=== PATIENT | male | born 1960 | race Caucasian/White ===

== ENCOUNTER 2020-09-12 16:26 | Emergency (ER) | payer BC, MEDICARE ==
[~2020-09-12] VITALS: Ht 177.8 cm; Wt 97.7 kg
[~2020-09-12 16:26] MED LIST: INSU100V8 SQ; novalog
--- NOTE | 2020-09-12 16:53 | PHYS DOC ---
Past History Past Medical History: Diabetes (RAKEL MEZA APRN) Past Surgical History: Other (RAKEL MEZA APRN) Smoking: Non-smoker Alcohol Use: None Drug Use: None (RAKEL MEZA APRN) General Adult EDM: Chief Complaint: CHEST PAIN HPI: HPI: Patient is a 60-year-old male who presents with chest tightness. Patient states he was sitting at his doctor's office in the waiting room when the tightness began. Patient also reports nausea but denies vomiting. Patient denies any shortness of breath, dizziness, or radiation of pain. Patient was at his PCP for a wound check to lateral left lower leg. Patient states he did not notice the wound until Saturday. Patient denies taking anything prior to arrival. Patient has a history of hypertension, diabetes, peritoneal dialysis, CHF. (RAKEL MEZA APRN) Review of Systems: Review of Systems: Constitutional: Denies fever or chills Eyes: Denies change in visual acuity HENT: Denies nasal congestion or sore throat Respiratory: Reports chronic cough, denies shortness of breath Cardiovascular: Denies chest pain or edema GI: Denies abdominal pain, nausea, vomiting, bloody stools or diarrhea : Denies dysuria Musculoskeletal: Denies back pain or joint pain Integument: Denies rash Neurologic: Denies headache, focal weakness or sensory changes Endocrine: Denies polyuria or polydipsia Lymphatic: Denies swollen glands Psychiatric: Denies depression or anxiety (RAKEL MEZA APRN) Allergies: Allergies: Allergies Coded Allergies Type Severity Reaction Last Updated Verified levofloxacin Allergy Unknown 09/12/20 Yes (RAKEL MEZA APRN) Physical Exam: PE: Constitutional: Well developed, well nourished, no acute distress, non-toxic appearance. [] HENT: Normocephalic, atraumatic, bilateral external ears normal, oropharynx moist, no oral exudates, nose normal. [] Eyes: PERRLA, EOMI, conjunctiva normal, no discharge. [] Neck: Normal range of motion, no tenderness, supple, no stridor. [] Cardiovascular:Heart rate sinus tachycardia, no murmur [] Lungs & Thorax: Bilateral breath sounds clear to auscultation [] Abdomen: Bowel sounds normal, soft, no tenderness, no masses, no pulsatile masses. [] Skin: Warm, dry, no erythema, no rash. [] Back: No tenderness, no CVA tenderness. [] Extremities: No tenderness, no cyanosis, no clubbing, ROM intact, no edema. [] Neurologic: Alert and oriented X 3, normal motor function, normal sensory function, no focal deficits noted. [] Psychologic: Affect normal, judgement normal, mood normal. [] (RAKEL MEZA APRN) EKG: EKG: [] (RAKEL MEZA APRN) Radiology/Procedures: Radiology/Procedures: []Study: XR CHEST 1V Indication: Chest pain. Comparison: 12/09/2013 Findings: The cardiomediastinal silhouette is enlarged. Prominence of the central vasculature and increased lung markings though in part related to low lung vol umes with bronchovascular crowding. No confluent airspace infiltrate, large effusion or pneumothorax. Grossly intact osseous structures. Impression: Enlargement of the cardiomediastinal silhouette potentially with a component of central vascular congestion. No large effusion. No localized airspace opacity to suggest an organizing pneumonia. Electronically signed by: OUSMANE TARANGO MD (09/12/2020 5:22 PM) [id number] XR FOOT_LEFT 3 VIEWS, XR LT TIBIA + FIBULA, XR EXAM OF ANKLE_LEFT 3V Clinical Indication: Reason: wound / Comparison: None. Findings: Foot: No dorsal soft tissue swelling. No bone erosion is identified to suggest osteomyelitis. Mild degenerative arthropathy. No bone erosion is seen to suggest osteoarthritis. The mineralization appears normal. Tibia fibula: No acute fracture. There is subcutaneous edema. Arterial calcifications are seen . There is large patellar enthesophyte. Ankle: Ankle mortise is intact. No acute fracture. No soft tissue swelling. Tiny Achill es calcaneal enthesophyte. IMPRESSION: No acute bone abnormality. Electronically signed by: Bravo May MD (09/12/2020 5:36 PM) DONALDBRISSA XR FOOT_LEFT 3 VIEWS, XR LT TIBIA + FIBULA, XR EXAM OF ANKLE_LEFT 3V Clinical Indication: Reason: wound / Comparison: None. Findings: Foot: No dorsal soft tissue swelling. No bone erosion is identified to suggest osteomyelitis. Mild degenerative arthropathy. No bone erosion is seen to suggest osteoarthritis. The mineralization appears normal. Tibia fibula: No acute fracture. There is subcutaneous edema. Arterial calcifications are seen. There is large patellar enthesophyte. Ankle: Ankle mortise is intact. No acute fracture. No soft tissue swelling. Tiny Achilles calcaneal enthesophyte. IMPRESSION: No acute bone abnormality. Electronically signed by: Bravo May MD (09/12/2020 5:36 PM) [facility] XR FOOT_LEFT 3 VIEWS, XR LT TIBIA + FIBULA, XR EXAM OF ANKLE_LEFT 3V Clinical Indication: Reason: wound / Comparison: None. Findings: Foot: No dorsal soft tissue swelling. No bone erosion is identified to suggest osteomyelitis. Mild degenerative arthropathy. No bone erosion is seen to suggest osteoarthritis. The mineralization appears normal. Tibia fibula: No acute fracture. There is subcutaneous edema. Arterial calcifications are seen. There is large patellar enthesophyte. Ankle: Ankle mortise is intact. No acute fracture. No soft tissue swelling. Tiny Achilles calcaneal enthesophyte. IMPRESSION: No acute bone abnormality. Electronically signed by: Bravo May MD (09/12/2020 5:36 PM) [facility] (RAKEL MEZA APRN) Heart Score: HEART Score for Chest Pain: HEART Score for Chest Pain Response (Comments) Value History Highly Suspicious 2 ECG Normal 0 Age >45 - < 65 1 Risk Factors >3 Risk Factors or Hx CAD 2 Troponin >1-<3x Normal Limit 1 Total 6 Risk Factors: Risk Factors: DM, Current or recent (<one month) smoker, HTN, HLP, family history of CAD, obesity. Risk Scores: Score 0 - 3: 2.5% MACE over next 6 weeks - Discharge Home Score 4 - 6: 20.3% MACE over next 6 weeks - Admit for Clinical Observation Score 7 - 10: 72.7% MACE over next 6 weeks - Early Invasive Strategies (RAKEL MEZA APRN) Course & Med Decision Making: Course & Med Decision Making Pertinent Labs and Imaging studies reviewed. (See chart for details) []Patient is a 60-year-old male who presents with chest tightness. Patient states he was sitting at his doctor's office in the waiting room when the tightness began. Patient also reports nausea but denies vomiting. Patient denies any shortness of breath, dizziness, or radiation of pain. Patient was at his PCP for a wound check to lateral left lower leg. Patient states he did not notice the wound until Saturday. Patient denies taking anything prior to arrival. Patient has a history of hypertension, diabetes, peritoneal dialysis, CHF. EKG sinus tachycardia, with a right bundle branch block, heart rate 131. Troponin 0.109. D-dimer was elevated 0.55. CTA ordered to rule out PE. Patient gets peritoneal dialysis daily. Discussed with patient admitting to the hospital for chest pain. Heart score of 6. Patient has 2 wounds on the lateral left lower leg. Zosyn and Vanco given for infection. Ankle, foot, tib- fib x-ray negative for osteomyelitis. Patient to follow-up with wound care at [facility]. Patient is okay with the plan to admit to the hospital. [facility] Spoke with Dr. Hendricks who also agrees to admit patient at [facility]. Started heparin per Dr. Hendricks for NSTEMI protocol. Aspirin was also given to patient. (RAKEL MEZA APRN) Course & Med Decision Making Did not see or evaluate patient personally. Agree with INFORMATION SECURITY ENGINEER's plan and disposition per note. (AMADEO BRIGHT MD) Dragon Disclaimer: Dragon Disclaimer: This electronic medical record was generated, in whole or in part, using a voice recognition dictation system. (RAKEL MEZA APRN) Departure Departure: Impression: Primary Impression: Chest pain Qualified Codes: R07.89 - Other chest pain Disposition: 05 DC/TRF OTHER TYPE INSTITUTI Condition: STABLE Referrals: PCP,NO (PCP) RAKEL MEZA APRN Sep 12, 2020 16:53 AMADEO BRIGHT MD Sep 14, 2020 00:10
--- NOTE | 2020-09-12 17:01 | EKG ---
[address] [address] Test Date: 2020-09-12 Test Time: 16:49:56 Pat Name: JAYDON HSIEH Department: Room: Gender: M Dianetic Counselor: : 1960 Requested By: RAKEL MEZA Order Number: [id number] Reading MD: Measurements Intervals [place] Rate: 131 P: MI: QRS: -10 QRSD: 148 T: 17 QT: 342 QTc: 510 Interpretive Statements VENTRICULAR TACHYCARDIA ABNORMAL ECG RI6.02 No previous ECG available for comparison
[2020-09-12 17:05] LABS: BASO # 0.1 x10^3/uL (0.0-0.2); BASO % 1 % (0-3); EOS # 0.3 x10^3/uL (0.0-0.7); EOS % 3 % (0-3); HEMATOCRIT 39.4 % (39.0-53.0); HEMOGLOBIN 12.5 g/dL (13.0-17.5); LYMPH # 0.5 x10^3/uL (1.0-4.8); LYMPH % 6 % (24-48); MEAN CORPUSCULAR HEMOGLOBIN 29 pg (25-35); MEAN CORPUSCULAR HGB CONC 32 g/dL (31-37); MEAN CORPUSCULAR VOLUME 91 fL (79-100); MONO % 11 % (0-9); NEUT # 7.3 x10^3uL (1.8-7.7); NEUT % 79 % (31-73); PLATELET COUNT 266 x10^3/uL (140-400); RED BLOOD COUNT 4.35 x10^6/uL (4.30-5.70); WHITE BLOOD COUNT 9.3 x10^3/uL (4.0-11.0)
[2020-09-12] MEDS ORDERED: PIPERACILLIN/TAZOBACTAM 3.375 GM VIAL IV ONE (17:11)
[2020-09-12] MEDS ORDERED: IV NORMAL SALINE 50ML 50 ML ONE (17:11)
[2020-09-12] MEDS ORDERED: VANCOMYCIN 2 GM in IV NORMAL SALINE 500ML 500 ML IV ONE (17:15)
[2020-09-12] MEDS ORDERED: VANCOMYCIN 1 GM in IV NORMAL SALINE 250ML 250 ML IV ONE (17:15)
[2020-09-12] MEDS ORDERED: PIPERACILLIN/TAZOBACTAM 3.375 GM in IV NORMAL SALINE 50ML 50 ML IV ONE (17:15)
--- NOTE | 2020-09-12 17:24 | RAD ---
Study: XR CHEST 1V Indication: Chest pain. Comparison: 12/09/2013 Findings: The cardiomediastinal silhouette is enlarged. Prominence of the central vasculature and increased carl g markings though in part related to low lung volumes with bronchovascular crowding. No confluent airspace infiltrate, large effusion or pneumothorax. Grossly intact osseous structures. Impression: Enlargement of the cardiomediastinal silhouette potentially with a component of central vascular kaley estion. No large effusion. No localized airspace opacity to suggest an organizing pneumonia. Electronically signed by: OUSMANE TARANGO MD (09/12/2020 5:22 PM) [id number]
--- NOTE | 2020-09-12 17:38 | RAD ---
XR FOOT_LEFT 3 VIEWS, XR LT TIBIA + FIBULA, XR EXAM OF ANKLE_LEFT 3V Clinical Indication: Reason: wound / Comparison: None. Findings: Foot: No dorsal soft tissue swelling. No bone erosion is identified to suggest osteomyelitis. Mild degenera tive arthropathy. No bone erosion is seen to suggest osteoarthritis. The mineralization appears alexx l. Tibia fibula: No acute fracture. There is subcutaneous edema. Arterial calcifications are seen. There is large sommer llar enthesophyte. Ankle: Ankle mortise is intact. No acute fracture. No soft tissue swelling. Tiny Achilles calcaneal enthesop hyte. IMPRESSION: No acute bone abnormality. Electronically signed by: Bravo May MD (09/12/2020 5:36 PM) DONALDBRISSA
[2020-09-12] MEDS ORDERED: IV NORMAL SALINE 500ML 500 ML ONE (17:58)
[2020-09-12] MEDS ORDERED: VANCOMYCIN 1 GM VIAL. ONE ×2 (17:58)
[2020-09-12] MEDS ORDERED: IOHEXOL 350 MG/ML 100 ML VIAL. IV ONE (18:00)
[2020-09-12 18:15] LABS: ALBUMIN 2.6 g/dL (3.4-5.0); ALBUMIN/GLOBULIN RATIO 0.8 (1.0-1.7); ALK PHOS 83 U/L (46-116); ALT (SGPT) 25 U/L (16-63); AST (SGOT) 12 U/L (15-37); BLOOD UREA NITROGEN 91 mg/dL (8-26); BUN/CREATININE RATIO 8 (6-20); CALCIUM 6.8 mg/dL (8.5-10.1); CREATININE 10.9 mg/dL (0.7-1.3); GFR 4.8; GLUCOSE 163 mg/dL (70-99); SODIUM 140 mmol/L (136-145); TOTAL BILIRUBIN 0.4 mg/dL (0.2-1.0); TOTAL PROTEIN 5.8 g/dL (6.4-8.2)
[2020-09-12 18:16] LABS: ANION GAP 20 (6-14); CARBON DIOXIDE 21 mmol/L (21-32); CHLORIDE 99 mmol/L (98-107); POTASSIUM 3.9 mmol/L (3.5-5.1)
[2020-09-12] MEDS ORDERED: ASPIRIN CHEWABLE 81 MG TABLET. PO ONE (19:15)
--- NOTE | 2020-09-12 19:20 | RAD ---
Study: CT CHEST WITH CONTRAST - PULMONARY ANGIOGRAM History: Chest pain, elevated d-dimer, PE Comparison: CT chest 10/12/2013 Technique: Helical CT of the chest performed after the administration of 75 mL Omnipaque 350 intrave nous contrast and timed for angiographic evaluation of the pulmonary arteries per PE protocol. Olivares l and sagittal 3D MIP reformations were obtained. One or more of the following individualized dose reduction techniques were utilized for this examinat ion: 1. Automated exposure control 2. Adjustment of the mA and/or kV according to patient size 3. Use of iterative reconstruction technique. Findings: Pulmonary Arteries: Contrast bolus is adequate. There is no acute pulmonary embolism. The main pulmon michael artery is mildly enlarged measuring 3.1 cm. Heart/Systemic Vasculature: The heart is mildly enlarged. No pericardial effusion. There are aortic v alvular calcifications and coronary artery calcifications. Thoracic aorta is normal in caliber. Mediastinum: Multiple small mediastinal and hilar lymph nodes including a 9 mm short axis right hilar lymph node and multiple calcified left hilar lymph nodes are not significantly changed. Lungs: There is interlobular septal thickening with groundglass opacities in the lung bases and apice s. Moderate airway wall thickening. There is a calcified granuloma in the left lower lobe. Trace left pleural effusion. Neck/Axilla/Body Wall: No axillary lymphadenopathy. Thyroid gland is unremarkable. Upper Abdomen: There are calcified splenic and hepatic granulomas small volume ascites. Bones: No acute osseous abnormality. IMPRESSION: 1. No acute pulmonary embolism. 2. Cardiomegaly with mild pulmonary edema and trace left pleural effusion. 3. Numerous prominent mediastinal and hilar lymph nodes, similar to 2013 and likely reactive. 4. Sequela of granulomatous disease. 5. Small volume of ascites in the upper abdomen. Electronically signed by: María Felipe MD (09/12/2020 7:17 PM) [id number]
[2020-09-12] MEDS ORDERED: TIROFIBAN 5MG -0.9% NS 100 ML IV PRN (19:45)
[2020-09-12] MEDS ORDERED: NITROGLYCERIN SUBLINGUAL 0.4 MG BOTTLE OF 25. SL PRN (19:45)
[2020-09-12] MEDS ORDERED: HEPARIN 25,000UTS/250ML PREMIX 250 ML IV ONE (20:30)
[2020-09-12] MEDS ORDERED: HEPARIN for IV BOLUS 10,000 UNIT/10 ML VIAL. IV ONE (20:30)
[2020-09-12 21:06] VITALS: BP 133/84
== END 2020-09-12 22:14 | disposition short-term general hospital (02) ==
LOC: ER 16:26
DX: R07.89 Other chest pain (principal); R05 Cough; R11.0 Nausea; E11.9 Type 2 diabetes mellitus without complications; Z20.822 Contact with and (suspected) exposure to COVID-19; Z88.1 Allergy status to other antibiotic agents
CPT/HCPCS: 36415; 71045; 71275; 73590; 73610; 73630; 80053; 80061; 83605; 83735; 83880; 84484; 85025; 85379; 85610; 85730; 87040; 87426; 93005; 96365; 96367; 96376; 99285; C9803; J1644; J2543; J3370; J7040; Q9967; U0003; 96366

== ENCOUNTER → 2021-05-08 | Outpatient (CLI) | payer OTHER, MEDICARE ==
--- NOTE | 2021-05-08 12:34 | RAD ---
EXAMINATION: XR CHEST 2V CLINICAL HISTORY: Shortness of breath EXAM DATE/TIME: 05/08/2021 12:19 PM COMPARISON: 09/12/2020 FINDINGS: Lines, Tubes, and Devices: None. Cardiomediastinal Silhouette: Mild cardiomegaly. Lungs and Pleura: Mild pulmonary vascular congestion suspected. No evidence of focal airspace consoli dation or pleural effusion. Old calcified granulomatous disease. Bones and Soft Tissues: No acute osseous abnormality. IMPRESSION: Mild cardiomegaly with mild pulmonary vascular congestion suspected, correlate for volume overload. Electronically signed by: Carlos Dinero DO (05/08/2021 12:32 PM) [facility]
== END ==
LOC: PMG 12:02
PROVIDERS: ATTEND Nurse Practitioner Family
DX: J06.9 Acute upper respiratory infection, unspecified (principal); I51.7 Cardiomegaly
CPT/HCPCS: 71046

== ENCOUNTER → 2021-11-24 | Outpatient (CLI) | payer MEDICARE, OTHER ==
--- NOTE | 2021-11-27 16:59 | RAD ---
11/27/2021 Ankle-brachial index. Bilateral lower extremity arterial duplex ultrasound. Indication: Hypertension. Severe peripheral vascular disease. History of left pecun-uzl-mhis interpre tation. Poorly healing wounds. Diabetes mellitus COMPARISON STUDY: None available for review. Procedure: Arterial pressures are measured in the arms and ankles. Right ankle: Not detected mm Hg. Right arm: 1 60 mm Hg. Left ankle: Prior amputation Left arm: Fistula present mm Hg. Right leg JESICA: Unobtainable. Left leg JESICA: Unobtainable. Procedure: Arterial 2D and duplex images are obtained of the lower extremity arteries. Findings: Mildly blunted waveforms noted throughout the right lower extremity. Right common femoral a rtery appears be grossly patent. Right profunda artery is grossly patent. Heart rate is regular. Visu alized right superficial femoral artery is patent. Right popliteal artery is densely calcified but gr ossly patent. Right posterior tibial artery is nonvisualized. The right peroneal artery is nonvisuali zed. The anterior tibial artery demonstrates blunted monophasic flow. The dorsalis pedis artery demon strates monophasic flow. Triphasic waveforms are present on the left. Left common femoral artery is patent. Left profunda lena ry is patent. Popliteal artery is nonvisualized. IMPRESSION: 1. Unobtainable ankle brachial indices 2. Nonvisualization of the right posterior tibial and peroneal arteries. Monophasic waveforms in the anterior tibial artery. 3. Ultrasound findings, and patient's complex history suggest this patient may likely benefit from ev aluation, and possibly attempted endovascular reconstruction by an endovascular specialist. If desire d, we would be happy to see them in our IR clinic or discuss it further at [phone] . Referral ca n also be made by faxing written referral to [phone] Electronically signed by: Tristin Solis MD (11/27/2021 4:57 PM) [id number]
--- NOTE | 2021-11-27 16:59 | RAD ---
11/27/2021 Ankle-brachial index. Bilateral lower extremity arterial duplex ultrasound. Indication: Hypertension. Severe peripheral vascular disease. History of left gqulb-lfh-idij interpre tation. Poorly healing wounds. Diabetes mellitus COMPARISON STUDY: None available for review. Procedure: Arterial pressures are measured in the arms and ankles. Right ankle: Not detected mm Hg. Right arm: 1 60 mm Hg. Left ankle: Prior amputation Left arm: Fistula present mm Hg. Right leg JESICA: Unobtainable. Left leg JESICA: Unobtainable. Procedure: Arterial 2D and duplex images are obtained of the lower extremity arteries. Findings: Mildly blunted waveforms noted throughout the right lower extremity. Right common femoral a rtery appears be grossly patent. Right profunda artery is grossly patent. Heart rate is regular. Visu alized right superficial femoral artery is patent. Right popliteal artery is densely calcified but gr ossly patent. Right posterior tibial artery is nonvisualized. The right peroneal artery is nonvisuali zed. The anterior tibial artery demonstrates blunted monophasic flow. The dorsalis pedis artery demon strates monophasic flow. Triphasic waveforms are present on the left. Left common femoral artery is patent. Left profunda lena ry is patent. Popliteal artery is nonvisualized. IMPRESSION: 1. Unobtainable ankle brachial indices 2. Nonvisualization of the right posterior tibial and peroneal arteries. Monophasic waveforms in the anterior tibial artery. 3. Ultrasound findings, and patient's complex history suggest this patient may likely benefit from ev aluation, and possibly attempted endovascular reconstruction by an endovascular specialist. If desire d, we would be happy to see them in our IR clinic or discuss it further at [phone] . Referral ca n also be made by faxing written referral to [phone] Electronically signed by: Tristin Solis MD (11/27/2021 4:57 PM) [id number]
== END ==
LOC: US 16:45
PROVIDERS: ATTEND Neuromusculoskeletal Medicine & OMM
DX: I70.8 Atherosclerosis of other arteries (principal); I70.223 Atherosclerosis of native arteries of extremities with rest pain, bilateral legs; E11.622 Type 2 diabetes mellitus with other skin ulcer; E11.22 Type 2 diabetes mellitus with diabetic chronic kidney disease; N18.6 End stage renal disease; T81.31XD Disruption of external operation (surgical) wound, not elsewhere classified, subsequent encounter; L97.922 Non-pressure chronic ulcer of unspecified part of left lower leg with fat layer exposed; L98.492 Non-pressure chronic ulcer of skin of other sites with fat layer exposed; N48.22 Cellulitis of corpus cavernosum and penis; N48.29 Other inflammatory disorders of penis; Z99.2 Dependence on renal dialysis; X58.XXXD Exposure to other specified factors, subsequent encounter
CPT/HCPCS: 93923; 93925